=== PATIENT | male | born 1985 | race Caucasian/White ===

== ENCOUNTER 2019-03-04 11:54 | Emergency (ER) | payer SELFPAY ==
[2019-03-04 12:21] VITALS: BMI 24.6
[2019-03-04] MEDS ORDERED: levETIRAcetam 500 MG/5 ML INJECTION VIAL IVPB ONE (12:47)
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
[2019-03-04] MEDS ORDERED: levETIRAcetam 500 MG TABLET (FP) PO ONE ×2 (12:55→12:58)
[2019-03-04] MEDS ORDERED: ACETAMINOPHEN 1000 MG/100 ML VIAL (NON FORMULARY) IVPB ONE (13:04)
[2019-03-04] MEDS ORDERED: ACETAMINOPHEN INJECTION 100 ML IVPB ONE (13:05)
[2019-03-04 13:14] LABS: BASO % 0.5 % (0-2.0); EOS % 1.6 % (0-4.5); HEMATOCRIT 37.6 % (35.4-49); LYMPH % 15.3 % (8-40); MCH 33.3 pg (25.7-33.7); MCHC 34.6 g/dl (32.0-35.9); MEAN CELL VOLUME 96.2 fl (80-96); MEAN PLT VOLUME 7.7 fl (7.5-11.1); NEUT % 75.6 % (42.8-82.8); PLATELET COUNT 363 K/MM3 (134-434); RDW 13.1 % (11.9-15.9); WHITE BLOOD COUNT 6.9 K/mm3 (4.0-10.0)
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
[2019-03-04 13:44] LABS: ALBUMIN 4.4 g/dl (3.4-5.0); BILIRUBIN,TOTAL 0.4 mg/dL (0.2-1); BLOOD UREA NITROGEN 12.8 mg/dL (7-18); CALCIUM 9.5 mg/dL (8.5-10.1); CREATININE 0.8 mg/dL (0.55-1.3); POTASSIUM 4.5 mmol/L (3.5-5.1)
[2019-03-04 16:57] VITALS: BP 122/74; PULSE 80; TEMP 97.9
--- NOTE | 2019-03-05 23:47 | EKG ---
Test Reason : Blood Pressure : / mmHG Vent. Rate : 084 BPM Atrial Rate : 084 BPM P-R Int : 138 ms QRS Dur : 100 ms QT Int : 370 ms P-R-T Axes : 061 010 023 degrees QTc Int : 437 ms NORMAL SINUS RHYTHM INCOMPLETE RIGHT BUNDLE BRANCH BLOCK BORDERLINE ECG NO PREVIOUS ECGS AVAILABLE Confirmed by KULDEEP BUENROSTRO, ISELA ([id number]) on 03/05/2019 11:46:55 PM Referred By: Confirmed By:ISELA LIGHT MD
== END 2019-03-04 16:45 | disposition short-term general hospital (02) ==
LOC: JER 11:54
CPT/HCPCS: 36415; 70450-TC; 71045-TC-FY; 80053; 80177; 85025; 93005; 93010; 99285-25; J0131